=== PATIENT | female | born 1970 | race Caucasian/White ===

== ENCOUNTER 2021-06-05 04:23 | Day surgery (SDC) | payer OTHER ==
[2021-06-05] MEDS ORDERED: BUPROPION HCL200 M2 PO (14:45)
[2021-06-05] MEDS ORDERED: PEDIATRIC10 MCG/11 PO (14:47)
[2021-06-05] MEDS ORDERED: B-12 COMPL1000 MCG/2 PO (14:49)
[2021-06-05] MEDS ORDERED: Amphetamine Sal20 MG PO (14:50)
[2021-06-05] MEDS ORDERED: SUBVENITE PO (14:50)
[2021-06-05] MEDS ORDERED: OMEP20ER PO (14:52)
[2021-06-05] MEDS ORDERED: NOVAFERRUM125 MG/51 PO (14:52)
== END 2021-06-05 15:28 | disposition home or self-care (01) ==
LOC: ATC 04:23
DX: D50.9 Iron deficiency anemia, unspecified (principal); Z88.8 Allergy status to other drugs, medicaments and biological substances
CPT/HCPCS: J2916

== ENCOUNTER 2021-09-14 06:55 | Day surgery (SDC) | payer OTHER ==
[~2021-09-14] VITALS: Wt 70.7 kg
[~2021-09-14 06:55] MED LIST: Amphetamine Sal20 MG PO; B-12 COMPL1000 MCG/2 PO; BUPROPION HCL200 M2 PO; NOVAFERRUM125 MG/51 PO; OMEP20ER PO; PEDIATRIC10 MCG/11 PO; SUBVENITE PO
--- NOTE | 2021-09-14 07:48 | NUR ---
Ambulatory in Day Surgery. History, Chart, Medications and Allergies reviewed before start of procedure.Lungs clear T/O to Auscultation. Patient confirms NPO status and agrees with scheduled surgery. Patient States Post-Procedure ride home has been arranged.
--- NOTE | 2021-09-14 08:32 | NUR ---
09/14/21 0832 [place] History, Chart, Medications and Allergies reviewed before start of procedure. Patient confirms NPO status and agrees with scheduled surgery. 3-LEAD EKG REVIEWED WITH PHYSICIAN PRIOR TO START OF PROCEDURE. MONITOR INTACT WITH CONTINUOUS PULSE OXIMETRY AND INTERMITTENT BP. PATIENT DETERMINED TO BE ASA APPROPRIATE FOR PROPOFOL SEDATION PRIOR TO START OF PROCEDURE BY . Bite Block Placed.
--- NOTE | 2021-09-14 10:30 | NUR ---
Patient up to Ambulate independently. Gait steady. Discharge instructions reviewed with patient. Patient verbalizes understanding. Copy given to patient to take home. Patient States Post-Procedure ride home has been arranged. Discharged via wheelchair to private car for ride home. ALL BELONGINGS RETURNED TO PATIENT THAT SHE CAME TO [facility] WITH.
== END 2021-09-14 23:30 | disposition home or self-care (01) ==
LOC: ORSCMMR 06:55 → ORSCSDS 08:00 → ORD 08:00 → ORSCMMR 08:00
PROVIDERS: Surgery
PROC: 0DJ08ZZ Inspection of Upper Intestinal Tract, Via Natural or Artificial Opening Endoscopic (ICD-10-PCS; principal; 2021-09-14 08:30)
PROC: 0DBL8ZX Excision of Transverse Colon, Via Natural or Artificial Opening Endoscopic, Diagnostic (ICD-10-PCS; principal; 2021-09-14 08:30)
DX: K62.5 Hemorrhage of anus and rectum (principal); D12.3 Benign neoplasm of transverse colon; D50.8 Other iron deficiency anemias; Z98.84 Bariatric surgery status; K28.9 Gastrojejunal ulcer, unspecified as acute or chronic, without hemorrhage or perforation; K21.9 Gastro-esophageal reflux disease without esophagitis; R13.14 Dysphagia, pharyngoesophageal phase; F41.8 Other specified anxiety disorders; F90.9 Attention-deficit hyperactivity disorder, unspecified type; Z79.899 Other long term (current) drug therapy
CPT/HCPCS: 88305; J2405; J2704; J7120